=== PATIENT | female | born 1945 | race Caucasian/White ===

== ENCOUNTER 2016-10-17 12:53 | Emergency (ER) | payer MEDICARE, OTHER ==
[~2016-10-17] VITALS: Ht 165.1 cm; Wt 55.3 kg
[~2016-10-17 12:53] MED LIST: ALBUT2 NEB; ALPR0.25 PO; ALPR1TAB2 PO; BUDE10.2 INH; DOXE50CA4 PO; DULO60CA45 PO; ENOX40DI SQ; FENT1PAT5 TP; HYDR-3976 PO; Ipratropium Bromide NEB; LEVO100T9 PO; LEVO250T2 PO; LUBI8CAP PO; MAG30ORA PO; METO50TA3 PO; MONT10TA22 PO; OLAN20TA3 PO; OMEP20CA10 PO; ONDA8TAB9 PO; PANT40TA2 PO; PRED10TA PO; PRED20TA GT; PRED50TA PO; TOPI25TA8 PO; [UNRECOGNIZED DRUG - CODE] PO
[2016-10-17] MEDS ORDERED: DOCU-170 PO (13:15)
[2016-10-17] MEDS ORDERED: TRAZ-147 PO (13:15)
[2016-10-17] MEDS ORDERED: CITA20TA11 PO (13:15)
[2016-10-17] MEDS ORDERED: TRAM50TA2 PO (13:15)
[2016-10-17] MEDS ORDERED: LEVO88TA5 PO (13:15)
--- NOTE | 2016-10-17 13:20 | NUR ---
PATIENT BIB RA, D/T BILATERAL SHOULDER PAIN. PATIENT BREATHING EVEN AND UNLABORED ON 2L OXYGEN VIA NC. NO SOB, NO DISTRESS. VITALS STABLE, SAFETY AND COMFORT MEASURES IN PLACE, AWAITING MD ORDERS.
--- NOTE | 2016-10-17 13:25 | NUR ---
NEW IV STARTED ON RIGHT WRIST, 20 GAUGE. BLOOD DRAWN AND SENT TO LAB.
[2016-10-17 13:28] LABS: BASOPHILS # (AUTO) 0.1 /CMM (0.0-0.2); BASOPHILS % (AUTO) 2.1 % (0.0-2.0); EOSINOPHILS # (AUTO) 0.2 /CMM (0.0-0.7); EOSINOPHILS % (AUTO) 2.7 % (0.0-6.0); HEMATOCRIT 44 % (33-45); HEMOGLOBIN 14.3 g/dL (11.5-14.8); LYMPHOCYTES # (AUTO) 2.2 /CMM (0.8-4.8); LYMPHOCYTES % (AUTO) 31.5 % (20.0-44.0); MEAN CORPUSCULAR HEMOGLOBIN 27 PG (26.0-33.0); MEAN CORPUSCULAR HGB CONC 32 g/dl (31.0-36.0); MEAN CORPUSCULAR VOLUME 85 fL (82-100); MONOCYTES # (AUTO) 0.8 /CMM (0.1-1.30); MONOCYTES % (AUTO) 10.9 % (2.0-12.0); NEUTROPHILS # (AUTO) 3.7 /CMM (1.8-8.9); NEUTROPHILS % (AUTO) 52.8 % (43.0-81.0); PLATELET COUNT (AUTO) 350 /CMM (150-450); RDW COEFFICIENT OF VARIATION 12.9 (11.5-15.0); RED BLOOD CELL COUNT(AUTO) 5.21 MIL/uL (4.0-5.2)
--- NOTE | 2016-10-17 13:37 | NUR ---
BLOOD SUGAR CHECK, 116.
[2016-10-17 13:38] LABS: CALCIUM, SERUM 9.3 mg/dL (8.5-10.1); CARBON DIOXIDE 32 mmol/L (21-32); CHLORIDE 102 mmol/L (98-107); CREATININE 0.8 mg/dL (0.6-1.3); GLUCOSE 108 mg/dL (74-106); POTASSIUM 3.9 mmol/L (3.5-5.1); SODIUM SERUM 138 mmol/L (136-145); UREA NITROGEN, BLOOD 6 mg/dL (7-18)
[2016-10-17 13:41] LABS: INR 1.05 (0.87-1.13); PROTHROMBIN TIME 10.9 SECS (9.5-12.7)
[2016-10-17 13:43] LABS: ALANINE AMINOTRANSFERASE 7 U/L (12-78); ALBUMIN 2.6 g/dL (3.4-5.0); ALKALINE PHOSPHATASE 103 U/L (46-116); ASPARTATE AMINOTRANSFERASE 20 U/L (15-37); BILIRUBIN,DIRECT 0.1 mg/dL (0.0-0.2); BILIRUBIN,TOTAL 0.3 mg/dL (0.2-1.0); TOTAL PROTEIN, SERUM 7.4 g/dL (6.4-8.2)
[2016-10-17] MEDS ORDERED: MORPHINE SULFATE INJ 2 MG/ML DISP.SYRIN ONE (13:45)
[2016-10-17] MEDS ORDERED: ONDANSETRON HCL/PF 4 MG/2 ML VIAL ONE (13:45)
--- NOTE | 2016-10-17 13:45 | NUR ---
G OBTAINED BY RT.
[2016-10-17 13:48] LABS: ABG BASE EXCESS 4.1 mmol/L; ABG OXYGEN SATURATION 97.1 % (92.0-98.5); ABG PCO2 45.5 mmHg (35.0-45.0); ABG PH 7.425 (7.350-7.450); ABG PO2 93.8 mmHg (75.0-100.0); AaDO2 59.4 mmHg; COHb 1.1 % (0.5-1.5); MetHb 0.4 % (0.0-1.5); O2Hb 95.6 % (94.0-97.0); SITE, ABG Right Brachial; VENT MODE, BG NASAL CANNULA
[2016-10-17 13:49] LABS: TROPONIN I < 0.017 ng/mL (0.00-0.056)
--- NOTE | 2016-10-17 13:55 | NUR ---
MEDICATED PATIENT PER MD ORDERS.
[2016-10-17] MEDS ORDERED: MORPHINE SULFATE INJ 2 MG/ML DISP.SYRIN IV ONE (14:00)
[2016-10-17] MEDS ORDERED: ONDANSETRON HCL/PF - ER 4 MG/2 ML VIAL IV ONE (14:00)
[2016-10-17] MEDS ORDERED: HYDROMORPHONE 1 MG/1 ML DISP.SYRIN ONE (14:25)
--- NOTE | 2016-10-17 14:28 | NUR ---
PATIENT STILL C/O 10/10 PAIN AFTER DOSE OF MORPHINE. DR. GALEAS MADE AWARE AND HAS ORDERED DILAUDID 1MG IVP. MEDICATION ADMINISTERED, WILL CONTINUE TO MONITOR.
[2016-10-17] MEDS ORDERED: HYDROMORPHONE 1 MG/1 ML DISP.SYRIN IV ONE (14:30)
[2016-10-17 14:51] VITALS: BP 111/73
--- NOTE | 2016-10-17 15:07 | NUR ---
Patient discharged to home in stable condition. Written and verbal after care instructions given. Patient verbalizes understanding of instruction.
== END 2016-10-17 15:06 | disposition home or self-care (01) ==
LOC: ER 12:55
DX: M06.9 Rheumatoid arthritis, unspecified (principal); M25.542 Pain in joints of left hand; M25.541 Pain in joints of right hand; M25.532 Pain in left wrist; M25.531 Pain in right wrist; M25.562 Pain in left knee; M25.561 Pain in right knee; M25.512 Pain in left shoulder; M25.511 Pain in right shoulder; G89.29 Other chronic pain; E03.9 Hypothyroidism, unspecified; I10 Essential (primary) hypertension; J44.9 Chronic obstructive pulmonary disease, unspecified; Z96.611 Presence of right artificial shoulder joint
CPT/HCPCS: 36415; 36600 ×2; 71010; 80048; 80076; 82803; 83605; 84484; 85025; 85730; 87040 ×2; 93005; 96374; 96375; 99285; A4606; J1170; J2270; J2405; Z7610

== ENCOUNTER 2016-11-24 20:41 | Emergency (ER) | payer OTHER ==
[~2016-11-24] VITALS: Ht 152.4 cm; Wt 52.2 kg
[~2016-11-24 20:41] MED LIST changes: -ALBUT2 NEB; -ALPR0.25 PO; -ALPR1TAB2 PO; -BUDE10.2 INH; +CITA20TA11 PO; +DOCU-170 PO; -DOXE50CA4 PO; -DULO60CA45 PO; -ENOX40DI SQ; -FENT1PAT5 TP; -HYDR-3976 PO; -Ipratropium Bromide NEB; -LEVO100T9 PO; -LEVO250T2 PO; +LEVO88TA5 PO; -LUBI8CAP PO; -MAG30ORA PO; -METO50TA3 PO; -MONT10TA22 PO; -OLAN20TA3 PO; -OMEP20CA10 PO; -ONDA8TAB9 PO; -PANT40TA2 PO; -PRED10TA PO; -PRED20TA GT; -PRED50TA PO; -TOPI25TA8 PO; +TRAM50TA2 PO; +TRAZ-147 PO; -[UNRECOGNIZED DRUG - CODE] PO
--- NOTE | 2016-11-24 20:47 | NUR ---
TO BED 3 BIB PARAMEDICS C/O N/V AND WEAKNESS. PT AAOX4 NO ACUTE DISTRESS NOTED, RESP EVEN AND UNLABORED. PLACE PT ON CARDIAC MONITORING, CONTINUOUS POX. PENDING ER MD GAYLE.
--- NOTE | 2016-11-24 20:51 | NUR ---
PT DENIES N/V AT THIS TIME. PT WAS GIVEN ZOFRAN 4MG SL BY EMS REFERRAL MANAGEMENT LIAISON.
[2016-11-24] MEDS ORDERED: ONDANSETRON HCL/PF - ER 4 MG/2 ML VIAL IV ONE (21:00)
[2016-11-24] MEDS ORDERED: IV NS 0.9% 500 ML BAG IV ONE (21:00)
[2016-11-24 21:16] LABS: BASOPHILS % (AUTO) 0.4 % (0.0-2.0); EOSINOPHILS # (AUTO) 0.1 /CMM (0.0-0.7); EOSINOPHILS % (AUTO) 1.1 % (0.0-6.0); HEMATOCRIT 44 % (33-45); HEMOGLOBIN 14.3 g/dL (11.5-14.8); LYMPHOCYTES # (AUTO) 2.1 /CMM (0.8-4.8); LYMPHOCYTES % (AUTO) 19.4 % (20.0-44.0); MEAN CORPUSCULAR HEMOGLOBIN 27 PG (26.0-33.0); MEAN CORPUSCULAR HGB CONC 33 g/dl (31.0-36.0); MEAN CORPUSCULAR VOLUME 82 fL (82-100); MONOCYTES # (AUTO) 0.7 /CMM (0.1-1.30); MONOCYTES % (AUTO) 6.5 % (2.0-12.0); NEUTROPHILS % (AUTO) 72.6 % (43.0-81.0); PLATELET COUNT (AUTO) 450 /CMM (150-450); RDW COEFFICIENT OF VARIATION 13.8 (11.5-15.0); RED BLOOD CELL COUNT(AUTO) 5.29 MIL/uL (4.0-5.2); WHITE BLOOD COUNT (AUTO) 10.9 K/uL (4.3-11.0)
[2016-11-24 21:24] LABS: CALCIUM, SERUM 9.5 mg/dL (8.5-10.1); CARBON DIOXIDE 28 mmol/L (21-32); CHLORIDE 96 mmol/L (98-107); CREATININE 0.7 mg/dL (0.6-1.3); GLUCOSE 93 mg/dL (74-106); POTASSIUM 3.9 mmol/L (3.5-5.1); SODIUM SERUM 132 mmol/L (136-145); UREA NITROGEN, BLOOD 12 mg/dL (7-18)
[2016-11-24 21:27] LABS: INR 1.04 (0.87-1.13); PROTHROMBIN TIME 10.8 SECS (9.5-12.7)
[2016-11-24 21:32] LABS: TROPONIN I < 0.017 ng/mL (0.00-0.056)
[2016-11-24] MEDS ORDERED: ONDANSETRON HCL/PF 4 MG/2 ML VIAL ONE (21:41)
[2016-11-24] MEDS ORDERED: MORPHINE SULFATE INJ 4 MG/ML DISP.SYRIN ONE (21:44)
[2016-11-24] MEDS ORDERED: MORPHINE SULFATE INJ 2 MG/ML DISP.SYRIN IV ONE (22:00)
--- NOTE | 2016-11-24 22:05 | NUR ---
PT C/O NAUSEA. ER POT BUILDER SAMEERA MADE AWARE.
--- NOTE | 2016-11-24 22:10 | NUR ---
SAMEERA SWINGING CUT OFF SAW OPERATOR AT BEDSIDE TO RE-EVAL PT.
[2016-11-24] MEDS ORDERED: PROMETHAZINE HCL 25 MG/ML AMPUL ONE (22:16)
[2016-11-24] MEDS ORDERED: PROMETHAZINE HCL 25 MG/ML AMPUL IV ONE (22:30)
--- NOTE | 2016-11-24 23:51 | NUR ---
TRANSPORTCALLED ([facility]) ETA 30MIN.
[2016-11-24 23:59] LABS: APPEARANCE,URINE SL CLOUDY (CLEAR); BILIRUBIN,URINE NEGATIVE (NEGATIVE); BLOOD, URINE TRACE-INTA Ery/uL (NEGATIVE); COLOR,URINE YELLOW (YELLOW); KETONES,URINE 2+ (NEGATIVE); LEUKOCYTE ESTERASE ,URINE TRACE (NEGATIVE); NITRITE, URINE NEGATIVE (NEGATIVE); PROTEIN,URINE NEGATIVE (NEGATIVE); UGLUCOSE NEGATIVE (NEGATIVE); UROBILINOGEN,URINE 0.2 EU/dL (0.2)
[2016-11-25 00:11] LABS: BACTERIA,URINE Few /HPF (None Seen); RBC,URINE 0-2 /HPF (0-2); SQUAMOUS EPITHELIAL CELL,UR Few /HPF (None Seen)
--- NOTE | 2016-11-25 00:32 | NUR ---
TRANSPORT AT BEDSIDE REPOT GIVEN TO EMT. IV removed. Catheter intact and site benign. Pressure and 4x4 applied to site. No bleeding noted.
[2016-11-25 00:33] VITALS: BP 130/97
== END 2016-11-25 00:34 | disposition home or self-care (01) ==
LOC: ER 20:43
DX: R53.1 Weakness (principal); R11.0 Nausea; M79.1 Myalgia; G89.29 Other chronic pain; R79.1 Abnormal coagulation profile; J44.9 Chronic obstructive pulmonary disease, unspecified; J45.909 Unspecified asthma, uncomplicated; E03.9 Hypothyroidism, unspecified; M06.9 Rheumatoid arthritis, unspecified
CPT/HCPCS: 36415; 70450; 71010; 80048; 81001; 84484; 85025; 85730; 87086; 93005; 96374; 96375; 99285; A4606; J2270; J2405 ×2; J2550; J7040 ×2; 81000-TC; Z7610

== ENCOUNTER 2016-12-07 08:57 | Emergency (ER) | payer OTHER ==
[~2016-12-07] VITALS: Ht 165.1 cm; Wt 52.2 kg
--- NOTE | 2016-12-07 09:05 | NUR ---
AAOX3, BIBRA C/O NAUSEA AND VOMITING X 3 DAYS, SKIN IS WARM AND DRY. RESP IS EVEN AND UNLABORED WITH NAD NOTED. DR GRIDER AT BS FOR EVAL. PLACED ON MONITOR AND PROVIDED WARM BLANKET FOR COMFORT.
[2016-12-07 09:35] LABS: CALCIUM, SERUM 10.4 mg/dL (8.5-10.1); CREATININE 0.9 mg/dL (0.6-1.3); POTASSIUM 4.2 mmol/L (3.5-5.1)
[2016-12-07 09:41] LABS: ALBUMIN 3.3 g/dL (3.4-5.0); BILIRUBIN,DIRECT 0.1 mg/dL (0.0-0.2); BILIRUBIN,TOTAL 0.7 mg/dL (0.2-1.0); TOTAL PROTEIN, SERUM 9.4 g/dL (6.4-8.2)
[2016-12-07 09:49] LABS: BASOPHILS # (AUTO) 0.1 /CMM (0.0-0.2); BASOPHILS % (AUTO) 0.5 % (0.0-2.0); EOSINOPHILS % (AUTO) 0.3 % (0.0-6.0); HEMATOCRIT 49 % (33-45); LYMPHOCYTES # (AUTO) 3.2 /CMM (0.8-4.8); LYMPHOCYTES % (AUTO) 27.4 % (20.0-44.0); MEAN CORPUSCULAR HEMOGLOBIN 27 PG (26.0-33.0); MEAN CORPUSCULAR HGB CONC 33 g/dl (31.0-36.0); MEAN CORPUSCULAR VOLUME 82 fL (82-100); MONOCYTES # (AUTO) 0.7 /CMM (0.1-1.30); MONOCYTES % (AUTO) 6.2 % (2.0-12.0); NEUTROPHILS # (AUTO) 7.8 /CMM (1.8-8.9); NEUTROPHILS % (AUTO) 65.6 % (43.0-81.0); PLATELET COUNT (AUTO) 446 /CMM (150-450); RDW COEFFICIENT OF VARIATION 14.4 (11.5-15.0); RED BLOOD CELL COUNT(AUTO) 6.03 MIL/uL (4.0-5.2); WHITE BLOOD COUNT (AUTO) 11.9 K/uL (4.3-11.0)
[2016-12-07 10:05] LABS: APPEARANCE,URINE Clear (CLEAR); BILIRUBIN,URINE MODERATE (NEGATIVE); BLOOD, URINE Moderate Ery/uL (NEGATIVE); COLOR,URINE Yellow (YELLOW); KETONES,URINE >=160 (NEGATIVE); LEUKOCYTE ESTERASE ,URINE Small (NEGATIVE); NITRITE, URINE Negative (NEGATIVE); PH,URINE 5.5 (5.0-8.0); PROTEIN,URINE 100 mg/dl (NEGATIVE); UGLUCOSE Negative (NEGATIVE); UROBILINOGEN,URINE 0.2 EU/dL (0.2)
[2016-12-07 10:10] LABS: BACTERIA,URINE Few /HPF (None Seen); SQUAMOUS EPITHELIAL CELL,UR Few /HPF (None Seen)
[2016-12-07 11:20] VITALS: BP 129/82
--- NOTE | 2016-12-07 11:29 | NUR ---
IV removed. Catheter intact and site benign. Pressure and 4x4 applied to site. No bleeding noted.Patient discharged to home in stable condition. Written and verbal after care instructions given. Patient verbalizes understanding of instruction.
[2016-12-10] MEDS ORDERED: LEVO500T15 PO (09:42)
== END 2016-12-07 11:33 | disposition home or self-care (01) ==
LOC: ER 08:59
DX: E86.0 Dehydration (principal); F11.23 Opioid dependence with withdrawal; N30.90 Cystitis, unspecified without hematuria; E03.9 Hypothyroidism, unspecified; J44.9 Chronic obstructive pulmonary disease, unspecified; M06.9 Rheumatoid arthritis, unspecified
CPT/HCPCS: 36415; 80048-TC; 80076-TC; 81000-TC; 83690-TC; 85025-TC; 87086-TC; A4606; J0696; J2270; J2405; J3490; J7030; Z7610

== ENCOUNTER 2017-01-16 18:57 | Emergency (ER) | payer MEDICARE, OTHER ==
[~2017-01-16] VITALS: Ht 154.9 cm; Wt 55.3 kg
[~2017-01-16 18:57] MED LIST changes: -CITA20TA11 PO; -DOCU-170 PO; +LEVO500T15 PO; -TRAM50TA2 PO
--- NOTE | 2017-01-16 19:05 | NUR ---
PT HERIBERTO FROM HOME TO ER BED 10. PT IS C/O VAGINAL AREA DISCOMFORT, BURNING SENSATION. REDNESS NOTED UPON ASSESMENT. NO PRESSURE SORE NOTED. GOWNED AND PLACED ON MONITOR. STABLE VITALS. AWAITING MD GAYLE.
--- NOTE | 2017-01-16 19:13 | NUR ---
DR GALEAS AT BEDSIDE FOR EVAL.
[2017-01-16 21:13] LABS: APPEARANCE,URINE Slightly Cloudy (CLEAR); BILIRUBIN,URINE Negative (NEGATIVE); BLOOD, URINE Trace-lysed Ery/uL (NEGATIVE); COLOR,URINE Yellow (YELLOW); KETONES,URINE Negative (NEGATIVE); LEUKOCYTE ESTERASE ,URINE Large (NEGATIVE); NITRITE, URINE Positive (NEGATIVE); PROTEIN,URINE Negative (NEGATIVE); UGLUCOSE Negative (NEGATIVE); UROBILINOGEN,URINE 0.2 EU/dL (0.2)
[2017-01-16 21:25] LABS: WBC,URINE 21-50 /HPF (0-3)
[2017-01-16 21:26] LABS: BACTERIA,URINE FEW /HPF (None Seen); SQUAMOUS EPITHELIAL CELL,UR FEW /HPF (None Seen)
--- NOTE | 2017-01-16 22:41 | NUR ---
CALLED [facility] FOR TRANPORT ETA OF 30 MINS WAS GIVEN.
--- NOTE | 2017-01-16 23:01 | NUR ---
Patient discharged to home in stable condition. Written and verbal after care instructions given. Patient verbalizes understanding of instruction.
[2017-01-16 23:02] VITALS: BP 132/84
== END 2017-01-16 23:03 | disposition home or self-care (01) ==
LOC: ER 18:59
DX: N39.0 Urinary tract infection, site not specified (principal); B37.3 Candidiasis of vulva and vagina; E03.9 Hypothyroidism, unspecified; F32.9 Major depressive disorder, single episode, unspecified; G89.29 Other chronic pain; J44.9 Chronic obstructive pulmonary disease, unspecified; M06.9 Rheumatoid arthritis, unspecified; M81.0 Age-related osteoporosis without current pathological fracture
CPT/HCPCS: 51702; 81001; 87077; 87086; 99284; A4606; 81000-TC; Z7610

== ENCOUNTER 2017-04-27 14:31 | Emergency (ER) | payer MEDICARE, OTHER ==
[~2017-04-27] VITALS: Ht 165.1 cm; Wt 59.0 kg
[~2017-04-27 14:31] MED LIST changes: -LEVO500T15 PO; +LEVO500T75 PO
--- NOTE | 2017-04-27 15:13 | NUR ---
PT TO ER BED 4 WITH COMPLAINTS OF R KNEE PAIN AND SWELLING SINCE 03/28/18. PT DENIES ANY INJURY AND STATES THAT THAT SHE WAS SEEN AT [facility] ER LAST MONTH FOR SAME COMPLAINT AND TAP WAS PERFORMED WITH NO RELIEF. PT REPORTS THAT SHE IS UNABLE TO WALK ON RIGHT LEG AND PAIN IS UNRELIEVED WITH MEDICATION. +ROM NOTED. KNEE IS WARM AND TENDER TO TOUCH. PT RESTING COMFORTABLY
[2017-04-27] MEDS ORDERED: LIDOCAINE HCL/PF 1% 30 ML SDV ONE (16:07)
[2017-04-27] MEDS ORDERED: LIDOCAINE HCL/PF 1% 30 ML VIAL TP ONE (16:30)
[2017-04-27] MEDS ORDERED: MORPHINE SULFATE INJ 2 MG/ML DISP.SYRIN IV ONE (16:30)
--- NOTE | 2017-04-27 17:12 | NUR ---
Patient does not wish to proceed with medical care recommended by Dr. MENDEZ. Patient given information related to possible complications, up to and including , which could occur as a result of leaving the hospital at this time. Patient verbalizes understanding of risks involved due to leaving against medical advice. Patient has signed AMA form.
[2017-04-27 17:24] VITALS: BP 121/71
--- NOTE | 2017-04-27 17:27 | NUR ---
Crutches dispensed. Pt instructed on proper use of crutches. Patient able to demonstrate correct use of crutches.
== END 2017-04-27 17:26 | disposition left against medical advice (07) ==
LOC: ER 14:32
DX: M25.461 Effusion, right knee (principal); E03.9 Hypothyroidism, unspecified; F32.9 Major depressive disorder, single episode, unspecified; G89.29 Other chronic pain; J44.9 Chronic obstructive pulmonary disease, unspecified; M19.90 Unspecified osteoarthritis, unspecified site; Z53.20 Procedure and treatment not carried out because of patient's decision for unspecified reasons
CPT/HCPCS: A4606; A6402; J3490; Z7610

== ENCOUNTER 2017-06-28 16:26 | Emergency (ER) | payer OTHER ==
[~2017-06-28] VITALS: Ht 165.1 cm; Wt 59.0 kg
--- NOTE | 2017-06-28 16:35 | NUR ---
AAOX3, BIB RA 889 FROM HOME,C/O LOWER ABDOMINAL PAIN AND DYSURIA X 5 DAYS. RR IS EVEN AND UNLABORED WITH NAD NOTED. ASSISTED TO HOSPITAL GOWN. PLACED ON THE MONITOR. WILL CONTINUOUSLY MONITOR THE PATIENT. AWAITING MD FOR EVAL.
[2017-06-28] MEDS ORDERED: HYDROCODONE/APAP 5/325MG 1 EACH TABLET ONE (16:59)
[2017-06-28] MEDS ORDERED: HYDROCODONE/APAP 5/325MG 1 EACH TABLET PO ONE (17:00)
[2017-06-28 17:16] LABS: BASOPHILS % (AUTO) 0.5 % (0.0-2.0); EOSINOPHILS # (AUTO) 0.3 /CMM (0.0-0.7); EOSINOPHILS % (AUTO) 4.1 % (0.0-6.0); HEMATOCRIT 38 % (33-45); HEMOGLOBIN 12.6 g/dL (11.5-14.8); LYMPHOCYTES # (AUTO) 3.5 /CMM (0.8-4.8); LYMPHOCYTES % (AUTO) 44.7 % (20.0-44.0); MEAN CORPUSCULAR HEMOGLOBIN 28 PG (26.0-33.0); MEAN CORPUSCULAR HGB CONC 33 g/dl (31.0-36.0); MEAN CORPUSCULAR VOLUME 84 fL (82-100); MONOCYTES # (AUTO) 0.6 /CMM (0.1-1.30); NEUTROPHILS # (AUTO) 3.5 /CMM (1.8-8.9); NEUTROPHILS % (AUTO) 43.7 % (43.0-81.0); PLATELET COUNT (AUTO) 305 /CMM (150-450); RDW COEFFICIENT OF VARIATION 17.8 (11.5-15.0); RED BLOOD CELL COUNT(AUTO) 4.52 MIL/uL (4.0-5.2); WHITE BLOOD COUNT (AUTO) 7.9 K/uL (4.3-11.0)
--- NOTE | 2017-06-28 17:19 | NUR ---
PATIENT REFUSEDM, MEDICATION WAS RETURNED TO THE [facility].
[2017-06-28 17:37] LABS: APPEARANCE,URINE CLOUDY (CLEAR); BILIRUBIN,URINE NEGATIVE (NEGATIVE); BLOOD, URINE 3+ Ery/uL (NEGATIVE); COLOR,URINE YELLOW (YELLOW); KETONES,URINE NEGATIVE (NEGATIVE); LEUKOCYTE ESTERASE ,URINE 3+ (NEGATIVE); NITRITE, URINE POSITIVE (NEGATIVE); PROTEIN,URINE 1+ mg/dl (NEGATIVE); UGLUCOSE NEGATIVE (NEGATIVE); UROBILINOGEN,URINE 0.2 EU/dL (0.2)
[2017-06-28 17:38] LABS: CALCIUM, SERUM 8.7 mg/dL (8.5-10.1); CREATININE 0.8 mg/dL (0.6-1.3)
[2017-06-28] MEDS ORDERED: oxyCODONE/APAP (5/325 MG) 1 UDTAB TABLET ONE (17:59)
[2017-06-28] MEDS ORDERED: NITROFURANTOIN/NITROFURAN MAC 100 MG CAPSULE PO ONE (18:00)
[2017-06-28] MEDS ORDERED: oxyCODONE/APAP (5/325 MG) 1 UDTAB TABLET PO ONE (18:00)
[2017-06-28] MEDS ORDERED: NITROFURANTOIN/NITROFURAN MAC 100 MG CAPSULE ONE (18:00)
[2017-06-28 18:03] LABS: BACTERIA,URINE Many /HPF (None Seen); RBC,URINE 21-50 /HPF (0-2); SQUAMOUS EPITHELIAL CELL,UR Few /HPF (None Seen); WBC,URINE TOO NUMEROUS TO COUN /HPF (0-3)
--- NOTE | 2017-06-28 19:05 | NUR ---
REQUESTED BLS AMBULANCE TRANSPORTATION BACK HOME VIA IPAD, AWAITING ETA
--- NOTE | 2017-06-28 19:05 | NUR ---
REPORT GIVEN TO KEE KAY FOR SHOBHA.
[2017-06-28 20:31] VITALS: BP 103/71
== END 2017-06-28 20:32 | disposition home or self-care (01) ==
LOC: ER 16:27
DX: N39.0 Urinary tract infection, site not specified (principal); E03.9 Hypothyroidism, unspecified; F32.9 Major depressive disorder, single episode, unspecified; J44.9 Chronic obstructive pulmonary disease, unspecified; M79.7 Fibromyalgia; G89.29 Other chronic pain; Z87.891 Personal history of nicotine dependence; Z90.49 Acquired absence of other specified parts of digestive tract; Z99.81 Dependence on supplemental oxygen
CPT/HCPCS: 36415; 80048-TC; 81000-TC; 85025-TC; 87086-TC; 87186-TC; A4606; Z7610

== ENCOUNTER 2017-07-26 05:40 | Inpatient (IN) | payer OTHER ==
[~2017-07-26] VITALS: Ht 154.9 cm; Wt 60.6 kg
[~2017-07-26 05:40] MED LIST changes: -TRAZ-147 PO; +TRAZ-214 PO
--- NOTE | 2017-07-26 07:10 | NUR ---
RN NOTES PT IS RESTING IN BED, ALERT AND ORIENTED WITH CAREGIVER AT BEDSIDE. PT ON RA, RESPIRATIONS ARE EVEN AND UNLABORED. IV ON R WRIST INTACT AND SL. SAFETY MEASURES ARE IN PLACE, CALL LIGHT IS IN REACH. WILL CONTINUE TO MONITOR
[2017-07-26 08:00] VITALS: BP 120/64
--- NOTE | 2017-07-26 08:00 | NUR ---
RN NOTES SPOKE WITH ARLENE FROM OR TO CLARIFY PRE OP ORDERS. CELEBREX, TYLENOL, AND OXYCODONE TO BE GIVEN PRE SURGERY, PER OR ORDERED.
[2017-07-26] MEDS ORDERED: CELECOXIB 100 MG CAPSULE PO SCH (08:12)
[2017-07-26] MEDS ORDERED: oxyCODONE HCL SR 10MG TAB.SR.12H PO ONE (08:30)
[2017-07-26] MEDS ORDERED: ACETAMINOPHEN 325 MG TABLET PO ONE (08:30)
[2017-07-26] MEDS ORDERED: LORA2TAB PO (09:22)
[2017-07-26] MEDS ORDERED: FOLI1TAB16 PO (09:22)
[2017-07-26] MEDS ORDERED: ASPI-1152 PO (09:22)
[2017-07-26] MEDS ORDERED: GABA-534 PO (09:22)
[2017-07-26] MEDS ORDERED: SUVO20TA PO (09:22)
[2017-07-26] MEDS ORDERED: FERR325T24 PO (09:22)
[2017-07-26] MEDS ORDERED: IPRA12.9 IH (09:22)
[2017-07-26] MEDS ORDERED: METH2.5T PO (09:22)
[2017-07-26] MEDS ORDERED: ROSU20TA PO (09:22)
[2017-07-26] MEDS ORDERED: OXYC-128 PO (09:22)
[2017-07-26] MEDS ORDERED: CEPH250C PO (09:22)
[2017-07-26] MEDS ORDERED: LEVO88TA5 PO (09:22)
[2017-07-26] MEDS ORDERED: ONDA4TAB10 PO (09:22)
[2017-07-26] MEDS ORDERED: PROP60TA18 PO (09:22)
[2017-07-26] MEDS ORDERED: IPRA3AMP23 IH (09:22)
[2017-07-26] MEDS ORDERED: CHOL20004 PO (09:22)
[2017-07-26] MEDS ORDERED: TERB250T4 PO (09:22)
[2017-07-26] MEDS ORDERED: BACITRACIN 50000 UNITS/VIAL ONE (11:12)
[2017-07-26] MEDS ORDERED: MIDAZOLAM HCL 2 MG/2ML VIAL ONE (11:18)
[2017-07-26] MEDS ORDERED: FENTANYL PF 100MCG/2ML AMPUL ONE (11:18)
[2017-07-26] MEDS ORDERED: TRANEXAMIC ACID 3,000 MG in SODIUM CHLORIDE IRRIG SOLUTION 70 ML IR ONE (11:30)
[2017-07-26] MEDS ORDERED: HYDROCODONE/APAP 5/325MG 1 EACH TABLET PO PRN ×2 (15:00)
[2017-07-26] MEDS ORDERED: DOCUSATE SODIUM 250 MG CAPSULE PO PRN (15:00)
[2017-07-26] MEDS ORDERED: ACETAMINOPHEN 325 MG TABLET PO PRN (15:00)
[2017-07-26] MEDS ORDERED: BISACODYL SUPP (10 MG) 10 MG/SUPP.RECT SUPP.RECT RC PRN (15:00)
[2017-07-26] MEDS ORDERED: ZOLPIDEM TARTRATE 5 MG TABLET PO PRN (15:00)
[2017-07-26] MEDS ORDERED: SENNOSIDES 8.6 MG TABLET PO PRN (15:00)
[2017-07-26] MEDS ORDERED: Medication Not On Formulary EA (Suvorexant (Belsomra) 20 MG) PO SCH (15:30)
[2017-07-26] MEDS ORDERED: Medication Not On Formulary EA (Ipratropium/Albuterol Sulfate (Duoneb 2.5-0.5 Mg/3 Ml So IH SCH (15:30)
[2017-07-26] MEDS ORDERED: oxyCODONE/APAP (5/325 MG) 1 UDTAB TABLET PO PRN (15:30)
[2017-07-26] MEDS ORDERED: Medication Not On Formulary EA (Ondansetron Hcl 4 MG) PO PRN (15:30)
[2017-07-26] MEDS ORDERED: LORAZEPAM 0.5 MG TABLET PO PRN (15:30)
[2017-07-26 16:00] VITALS: BP 141/69
[2017-07-26] MEDS ORDERED: IPRATROPIUM NEB FS 0.5 MG/2.5 ML AMPUL.NEB NEB ONE (16:00)
[2017-07-26] MEDS: FERROUS SULFATE (325 MG) 325 MG/TAB TABLET PO SCH (16:12)
[2017-07-26] MEDS ORDERED: oxyCODONE/APAP (5/325 MG) 1 UDTAB TABLET PO SCH ×2 (17:00)
[2017-07-26] MEDS: IV LR 1000 ML 1,000 ML IV PRN (17:14)
[2017-07-26] MEDS ORDERED: FENTANYL PF 100MCG/2ML AMPUL IV PRN (18:30)
--- NOTE | 2017-07-26 18:50 | NUR ---
RN NOTES PT STATES IV IS HURTING WHEN IV ATTEMPTED TO BE FLUSHED. 2 ATTEMPTS DONE TO PUT IN NEW IV, BUT UNABLE. ICU CALLED TO HAVE NURSE COME DOWN TO INSERT.
--- NOTE | 2017-07-26 18:54 | NUR ---
RN NOTES PT IS SITTING UP IN BED, ALERT AND AWAKE. PT ON 2L O2, RESPIRATIONS ARE EVEN AND UNLABORED. IV ON R WRIST INTACT, ICU CALLED TO PUT IN NEW IV. YAO CATHETER IS INTACT AND DRAINING. ALL MEDS GIVEN ORDERED. NO SIGNS OF DISTRESS NOTED. SAFETY MEASURES ARE IN PLACE, CALL LIGHT IS IN REACH. WILL ENDORSE TO RN REHABILITATION RN FOR CONTINUITY OF CARE.
[2017-07-26] MEDS ORDERED: FENTANYL PF 100MCG/2ML AMPUL IV ONE (19:01)
[2017-07-26] MEDS: ALBUTEROL FS 2.5 MG/0.5 ML VIAL.NEB NEB SCH (19:30)
[2017-07-26] MEDS: IPRATROPIUM NEB FS 0.5 MG/2.5 ML AMPUL.NEB NEB SCH (19:30)
--- NOTE | 2017-07-26 19:38 | NUR ---
INSTRUCTED PT ON USE OF INCENTIVE SPIROMETRY. PT UNABLE TO PERFORM. PT HAVING NAUSEA.
--- NOTE | 2017-07-26 19:48 | NUR ---
MS RN OPENING NOTES RECEIVED PT SITTING UPRIGHT. AWAKE AND RESPONSIVE. RESPIRATIONS ARE EVEN AND UNLABORED, NOT IN ANY ACUTE DISTRESS NOTED. NO C/O SOB, N/V. IV SITE IS INTACT. NO INFILTRATION NOTED. DRESSING KEPT CLEAN AND DRY. SAFETY MEASURES ARE IN PLACE. BED IS IN ITS LOCKED AND LOWERED POSITION. WILL CONTINUE TO MONITOR PT THROUGHOUT SHIFT FOR CONTINUITY OF CARE.
[2017-07-26 20:00] VITALS: BP 137/73
[2017-07-26 20:05] VITALS: BP 137/73
[2017-07-26] MEDS: CEFAZOLIN 2 GM in IV D5W 100 ML IV SCH (20:17)
[2017-07-26] MEDS: ONDANSETRON HCL/PF 4 MG/2 ML VIAL IVP PRN (20:17)
[2017-07-26] MEDS: GABAPENTIN 300 MG CAPSULE PO SCH (21:47)
[2017-07-26] MEDS: LORAZEPAM 0.5 MG TABLET PO SCH (21:47)
[2017-07-27] MEDS: IPRATROPIUM NEB FS 0.5 MG/2.5 ML AMPUL.NEB NEB SCH ×4 (01:16→20:31)
[2017-07-27] MEDS: ALBUTEROL FS 2.5 MG/0.5 ML VIAL.NEB NEB SCH ×4 (01:16→20:31)
[2017-07-27] MEDS: ONDANSETRON HCL/PF 4 MG/2 ML VIAL IVP PRN ×2 (02:06→20:33)
[2017-07-27] MEDS: oxyCODONE IR immediate release 5 MG PO PRN ×3 (02:38→12:13)
[2017-07-27] MEDS: CEFAZOLIN 2 GM in IV D5W 100 ML IV SCH (03:08)
--- NOTE | 2017-07-27 05:30 | NUR ---
MS SWEET CLOSING NOTES ALL DUE MEDS GIVEN, NEEDS MET AND RENDERED. AWAKE AND RESPONSIVE. RESPIRATIONS ARE EVEN AND UNLABORED, NOT IN ANY ACUTE DISTRESS NOTED. PAIN MANAGED BY OXY IR 10MG, NOTED TO BE EFFECTIVE. NO C/O SOB, CHEST PAIN. IV SITE INTACT, DRESSING KEPT CLEAN AND DRY. NO INFILTRATION NOTED. SAFETY MEASURES ARE IN PLACE. REMINDED PT TO USE CALL LIGHT WHEN ASSISTANCE IS NEEDED, CALL LIGHT IS LEFT WITHIN REACH. WILL ENDORSE TO NEXT SHIFT FOR CONTINUITY OF CARE. Addendum: 07/27/17 at 0631 by DELMER MCLAUGHILN RN PT CONTINUED TO BE MONITORED. CLOSING NOTES FOR 629. AND WILL ENDORSE FOR CONTINUITY OF CARE.
[2017-07-27] MEDS: ASPIRIN 325 MG TABLET PO SCH (05:51)
[2017-07-27] MEDS: LORAZEPAM 0.5 MG TABLET PO SCH (05:51)
--- NOTE | 2017-07-27 05:55 | NUR ---
MS RN NOTES PT REFUSED SCHEDULED ATIVAN. EXPLAINED THE RISKS AND BENEFITS X3, STILL NOTED WITH REFUSAL. HONORED PT'S DIGNITY AND RIGHT TO REFUSE. PT DOES NOT APPEAR ANXIOUS AT THIS TIME. WILL CONTINUE TO MONITOR.
--- NOTE | 2017-07-27 06:31 | NUR ---
MS KEE NOTES PT SEEN AND EXAMINED BY DR. JACKSON WITH NO NEW ORDERS AT THIS TIME. Addendum: 07/27/17 at 0638 by DELMER MCLAUG[address]IN RN DR. JACKSON MADE AWARE OF PT FORCING HERSELF TO VOMIT AND WAS ALSO SEEN BY DR. JACKSON. PER DR. FULLER, ORDERS NOTED AND CARRIED OUT FOR MAALOX X1 NOW AND PRN, WELL PROTONIX.
--- NOTE | 2017-07-27 06:34 | NUR ---
MS RN CLOSING NOTES ALL DUE MEDS GIVEN, NEEDS MET AND RENDERED. AWAKE AND RESPONSIVE. RESPIRATIONS ARE EVEN AND UNLABORED, NOT IN ANY ACUTE DISTRESS NOTED. PAIN MANAGED BY OXY IR 10MG, NOTED TO BE EFFECTIVE. NO C/O SOB, CHEST PAIN. IV SITE INTACT, DRESSING KEPT CLEAN AND DRY. NO INFILTRATION NOTED. SAFETY MEASURES ARE IN PLACE. REMINDED PT TO USE CALL LIGHT WHEN ASSISTANCE IS NEEDED, CALL LIGHT IS LEFT WITHIN REACH. WILL ENDORSE TO NEXT SHIFT FOR CONTINUITY OF CARE.
[2017-07-27] MEDS ORDERED: MAG HYDROX/AL HYDROX/SIMETH 30 ML UDC PO ONE (07:00)
[2017-07-27] MEDS ORDERED: MAG HYDROX/AL HYDROX/SIMETH 30 ML UDC PO PRN (07:00)
--- NOTE | 2017-07-27 07:53 | NUR ---
MS/RN OPENING NOTE PATIENT IN BED IN STABLE CONDITION. A/O X 4. NO SIGNS OF ACUTE DISTRESS. COMPLAIN OF PAIN TO RIGHT KNEE. PRN PAIN MED ADMINISTERED AT 0630. TOLERATING WELL, S/P RIGHT KNEE ARTHROPLASTY. ALL NEEDS ATTENDED TO. CALL LIGHT WITHIN REACH. WILL CONTINUE TO MONITOR TO ENSURE SAFETY.
[2017-07-27 08:23] LABS: BASOPHILS % (AUTO) 0.1 % (0.0-2.0); EOSINOPHILS % (AUTO) 0.3 % (0.0-6.0); HEMATOCRIT 37 % (33-45); HEMOGLOBIN 12.6 g/dL (11.5-14.8); LYMPHOCYTES # (AUTO) 1.5 /CMM (0.8-4.8); LYMPHOCYTES % (AUTO) 12.6 % (20.0-44.0); MEAN CORPUSCULAR HGB CONC 34 g/dl (31.0-36.0); MEAN CORPUSCULAR VOLUME 85 fL (82-100); MONOCYTES # (AUTO) 0.6 /CMM (0.1-1.30); NEUTROPHILS # (AUTO) 9.8 /CMM (1.8-8.9); PLATELET COUNT (AUTO) 234 /CMM (150-450); RDW COEFFICIENT OF VARIATION 15.1 (11.5-15.0); RED BLOOD CELL COUNT(AUTO) 4.34 MIL/uL (4.0-5.2); WHITE BLOOD COUNT (AUTO) 11.9 K/uL (4.3-11.0)
[2017-07-27 08:26] LABS: CALCIUM, SERUM 8.5 mg/dL (8.5-10.1); CREATININE 0.7 mg/dL (0.6-1.3); POTASSIUM 3.6 mmol/L (3.5-5.1)
[2017-07-27] MEDS: FOLIC ACID 1 MG TABLET PO SCH (08:47)
[2017-07-27] MEDS: CHOLECALCIFEROL 1,000 UNIT TABLET (VIT D3) PO SCH (08:47)
[2017-07-27] MEDS: PROPRANOLOL HCL 10 MG TABLET PO SCH (08:48)
[2017-07-27] MEDS: PANTOPRAZOLE 40 MG TABLET.DR PO SCH (08:48)
[2017-07-27] MEDS: ATORVASTATIN 40 MG TABLET PO SCH (08:48)
[2017-07-27] MEDS: LEVOTHYROXINE SODIUM 88 MCG TABLET PO SCH (08:48)
[2017-07-27] MEDS: FERROUS SULFATE (325 MG) 325 MG/TAB TABLET PO SCH (08:48)
[2017-07-27] MEDS: TERBINAFINE HCL 250 MG TABLET PO SCH (08:52)
[2017-07-27] MEDS ORDERED: ASPIRIN EC 81 MG TABLET.DR PO SCH (09:00)
[2017-07-27 09:08] LABS: LYMPHOCYTES % (MANUAL) 10 % (16-48); NEUTROPHILS % (MANUAL) 84 (42-76)
[2017-07-27 09:09] LABS: MONOCYTES % (MANUAL) 6 % (0-11.0)
--- NOTE | 2017-07-27 10:40 | NUR ---
MS/RN SEEN BY DR MON PATIENT IN BED A/O X 3, LETHARGIC, BUT AROUSABLE UPON REACH, REQUESTING FOR OXY Ir PAIN MEDICATION, LAST ADMINISTERED 622. PER DR MON PLEASE VERIFY/CLARIFY THE ORDER WITH DR JACKSON FIRST BEFORE ADMINISTERING THE MEDICATION AND MAKE HIM AWARE PATIENT SEEMS LITTLE LETHARGIC AND SEDATIVE. CHECKED V/V 149/87, 85 OXYGEN SAT 96% ON 1L OXYGEN VIA NC.
--- NOTE | 2017-07-27 10:45 | NUR ---
MS/RN PAGED DR JACKSON PAGED DR JACKSON TO VERIFY OXY Ir ORDER. AWAITING FOR CALL BACK.
[2017-07-27] MEDS: IV LR 1000 ML 1,000 ML IV PRN (12:06)
--- NOTE | 2017-07-27 12:07 | NUR ---
MS/RN SPOKE WITH DR JACKSON SPOKE WITH DR JACKSON AND MADE AWARE PATIENT COMPLAIN OF RIGHT KNEE PAIN 10/10, REFUSE AND FENTANYL IV PUSH AND WANTED TO VERIFY IF OKAY TO GIVE OXY Ir, SINCE PATIENT SEEMS LITTLE LETHARGIC COMPARE TO THIS MORNING, V/S 149/87,85 OXYGEN 96% ON 1L OXYGEN NC. PER DR JACKSON SINCE OXY Ir IS PRN, ADMINISTERED ONLY IF NEEDED AND IF PATIENT SEEMS TOO SEDATIVE DON'T ADMINISTER. AT THIS TIME PATIENT MORE AWAKE AND ALERT AND OXY Ir ADMINISTERED. WILL CONTINUE TO MONITOR FOR FURTHER CHANGES.
--- NOTE | 2017-07-27 13:53 | NUR ---
FOUND PT ON ROOM AIR SPO2: 88%. PLACED PT BACK ON 2L NC. PT SPO2 WENT BACK UP TO 95%. WILL NOTIFY RN.
[2017-07-27] MEDS ORDERED: LORAZEPAM 0.5 MG TABLET PO PRN (14:00)
[2017-07-27 17:36] VITALS: BP 149/73
--- NOTE | 2017-07-27 18:25 | NUR ---
MS/RN CLOSING NOTE PATIENT IN BED IN STABLE CONDITION. A/O X 4. NO SIGNS OF ACUTE DISTRESS. NO COMPLAIN OF PAIN OR DISCOMFORT. ON CPM MACHINE AT THIS TIME FOR RIGHT KNEE, S/P TOTAL KNEE ARTHROPLASTY. TOLERATING WELL AND STILL WANTS TO CONTINUE. ALL NEEDS ATTENDED TO. CALL LIGHT WITHIN REACH. WILL ENDORSE TO NEXT SHIFT FOR CONTINUITY OF CARE.
--- NOTE | 2017-07-27 19:30 | NUR ---
MS RN OPENING NOTES: PATIENT IN BED, AOX3, ON O2 AT 2 LPM VIA NC, BREATHING EVEN AND UNLABORED, BUT WITH SLIGHT WHEEZING HEARD UPON AUSCULTATION. PATIENT STATES THAT SHE FEELS "SICK" AND NAUSEOUS. DID NOT COMPLAIN OF R KNEE PAIN OF NOW, EVEN WHILE CPM IS ON. GENTLY RELEASED RLE FROM CPM MACHINE. RLE WITH CLEAN AND INTACT DRESSING. PIV OVER R WRIST APPEARS SWOLLEN AND WARM TO TOUCH. D'MIO LINE FOR NOW. YAO CATHETER IN PLACE DRAINING CLEAR YELLOW URINE. PROVIDED FOR COMFORT AND SAFETY. BED IN LOWEST AND LOCKED POSITION, SIDERAILS UP X 3, CALL LIGHT WITHIN REACH. WILL CONT TO MONITOR.
[2017-07-27 20:00] VITALS: BP 139/72
--- NOTE | 2017-07-27 20:33 | NUR ---
RN NOTES: REINSERTED NEW IV LINE OVER LEFT HAND G 24, WITH GOOD BLOOD RETURN, THEN ADMINISTERED ZOFRAN IV PRN.
[2017-07-27] MEDS: GABAPENTIN 300 MG CAPSULE PO SCH (21:44)
[2017-07-28] MEDS: IV LR 1000 ML 1,000 ML IV PRN (00:56)
[2017-07-28 01:05] VITALS: BP 141/76
--- NOTE | 2017-07-28 01:15 | NUR ---
RN NOTES: PATIENT GRIMACING, UNABLE TO SLEEP, COMPLAINED OF 9/10 PAIN OVER HER LOWER BACK AND R KNEE, INITIALLY REFUSING TO BE REPOSITIONED. VS CHECKED: T: 98.2, BP: 141/76, HR: 72, RR: 19, O2 SAT: 99% ON O2 AT 2 LPM. ADMINISTERED SUBLIMAZE 25 MCG IV PRN. WILL CONT TO MONITOR.
[2017-07-28] MEDS: IPRATROPIUM NEB FS 0.5 MG/2.5 ML AMPUL.NEB NEB SCH ×3 (02:16→13:40)
[2017-07-28] MEDS: ALBUTEROL FS 2.5 MG/0.5 ML VIAL.NEB NEB SCH ×3 (02:16→13:40)
[2017-07-28] MEDS: oxyCODONE IR immediate release 5 MG PO PRN ×2 (03:22→09:30)
--- NOTE | 2017-07-28 03:22 | NUR ---
RN NOTES: PATIENT TRANSFERRED TO 315-1 BECAUSE PREVIOUS ROOMMATE IN 322 IS CONFUSED AND YELLING. PATIENT COMPLAINED OF 9/10 PAIN OVER HER LOWER BACK, GREATER OVER HER RIGHT LOWER BACK. VS CHECKED: BP: 132/69, HR: 71, RR: 18, O2 SAT: 98% ON O2 AT 2 LPM VIA NC. ADMINISTERED OXY IR 10 MG PO. WILL CONT TO MONITOR.
[2017-07-28 03:30] VITALS: BP 132/69
[2017-07-28] MEDS: ONDANSETRON HCL/PF 4 MG/2 ML VIAL IVP PRN (03:36)
--- NOTE | 2017-07-28 04:35 | NUR ---
RN NOTES: OFFERED BED BATH AND LINEN CHANGE TO PATIENT, HOWEVER, SHE REFUSES AT THIS TIME. WILL RECHECK LATER.
[2017-07-28] MEDS: ASPIRIN 325 MG TABLET PO SCH (05:50)
[2017-07-28] MEDS: PANTOPRAZOLE 40 MG TABLET.DR PO SCH (06:59)
[2017-07-28] MEDS: LEVOTHYROXINE SODIUM 88 MCG TABLET PO SCH (07:00)
--- NOTE | 2017-07-28 07:10 | NUR ---
MS RN CLOSING NOTES: PATIENT IN BED, AOX4, ON O2 AT 2 LPM VIA NC, BREATHING EVEN AND UNLABORED. ENCOURAGED USE OF INCENTIVE SPIROMETRY WHENEVER AWAKE, BUT PATIENT IS WITHDRAWN AND HAD POOR COMPLIANCE. APPEARS CALM AND IN NO DISTRESS, BUT STILL COMPLAINS OF PAIN WHENEVER MOVED. PRN PAIN MEDS GIVEN. PIV OVER LEFT HAND G 24 INTACT AND INFUSING WELL WITH LR RUNNING AT 75 ML/HR. YAO CATHETER IN PLACE, DRAINING CLEAR YELLOW URINE. DUE MEDS GIVEN. PROVIDED FOR COMFORT AND SAFETY. BED IN LOWEST AND LOCKED POSITION, SIDERAILS UP X 3, CALL LIGHT WITHIN REACH. WILL ENDORSE TO AM RN FOR SHOBHA.
--- NOTE | 2017-07-28 07:39 | NUR ---
MS/RN OPENING NOTE PATIENT IN BED IN STABLE CONDITION. A/O X 4. NO SIGNS OF ACUTE DISTRESS. NO COMPLAIN OF PAIN OR DISCOMFORT. ALL NEEDS ATTENDED TO. CALL LIGHT WITHIN REACH. WILL CONTINUE TO MONITOR TO ENSURE SAFETY.
[2017-07-28 08:00] VITALS: BP 136/73
[2017-07-28 08:36] VITALS: BP 136/73
[2017-07-28] MEDS: PROPRANOLOL HCL 10 MG TABLET PO SCH (08:36)
[2017-07-28] MEDS: ATORVASTATIN 40 MG TABLET PO SCH (08:36)
[2017-07-28] MEDS: FERROUS SULFATE (325 MG) 325 MG/TAB TABLET PO SCH (08:36)
[2017-07-28] MEDS: TERBINAFINE HCL 250 MG TABLET PO SCH (08:36)
[2017-07-28] MEDS: CHOLECALCIFEROL 1,000 UNIT TABLET (VIT D3) PO SCH (08:36)
[2017-07-28] MEDS: FOLIC ACID 1 MG TABLET PO SCH (08:36)
--- NOTE | 2017-07-28 15:51 | NUR ---
-MS/SUPERVISOR BACKFILLING PATIENT DISCHARGE TO [facility] IN STABLE CONDITION. A/O X 3. NO SIGNS OF ACUTE DISTRESS. NO COMPLAIN OF PAIN OR DISCOMFORT. DISCHARGE INSTRUCTIONS AND TEACHINGS PROVIDED. MADE AWARE TO FOLLOW UP WITH DR BOX WITHIN A WEEK . REPORT GIVEN TO LISSET SWEET FROM SN[facility]. RIGHT KNEE S/P TOTAL ARTHROPLASTY DRESSING CHANGE DONE. TOLERATED WELL. ALL NEEDS ATTENDED TO. NAME BAND AND IV LINE REMOVED. LEFT VIA AMBULANCE ACCOMPANIED BY 2 PARAMEDICS AND PATIENT'S OWN CAREGIVER.
[2017-07-30] MEDS ORDERED: LEVOTHYROXINE SODIUM 88 MCG TABLET PO SCH (07:30)
== END 2017-07-28 15:48 | DRG 470 ==
LOC: DS 05:40 → MED 05:42
PROVIDERS: ADMIT Specialist; ATTEND Specialist
PROC: 0SRC0J9 Replacement of Right Knee Joint with Synthetic Substitute, Cemented, Open Approach (ICD-10-PCS; principal; 2017-07-26 12:29)
DX: M17.11 Unilateral primary osteoarthritis, right knee (principal); J44.9 Chronic obstructive pulmonary disease, unspecified; F11.20 Opioid dependence, uncomplicated; Z99.81 Dependence on supplemental oxygen; F13.20 Sedative, hypnotic or anxiolytic dependence, uncomplicated; M06.9 Rheumatoid arthritis, unspecified; E03.9 Hypothyroidism, unspecified; E78.5 Hyperlipidemia, unspecified; G47.00 Insomnia, unspecified; G89.4 Chronic pain syndrome; I10 Essential (primary) hypertension; Z90.49 Acquired absence of other specified parts of digestive tract; J45.909 Unspecified asthma, uncomplicated; Z87.891 Personal history of nicotine dependence
CPT/HCPCS: 36415; 80048-TC; 82962-TC; 85025-TC; 86850-TC; 86921-TC; 87081-TC; 88305-TC; 88311-TC; 94799-TC; 97110-TC; 97112-TC; 97116-TC; 97530-TC; 97535-TC; 97760-TC; A4217; A6402; C1713; J0690; J2250; J2405; J2704; J3010; J3490; J7060; J7120; L1830; Z7610